=== PATIENT | female | born 1970 | race Caucasian/White ===

== ENCOUNTER 2016-08-22 21:45 | Emergency (ER) | payer BC, OTHER ==
[2016-08-22 22:30] LABS: ABSOLUTE NEUTROPHIL COUNT 4.1 K/mm3 (1.8-7.7); BASO # 0.1 K/mm3 (0.0-0.2); BASO % 0.7 % (0.2-1.0); EOS # 0.2 (0.0-0.5); EOS % 1.7 % (0.9-2.9); HEMATOCRIT 41.6 % (37.0-47.0); HEMOGLOBIN 13.5 gm/l (12.0-16.0); IMM NEUT% 0.2 % (0-1); LYMPH # 3.6 (1.0-4.8); LYMPH % 42.1 % (15-45); MEAN CELL VOLUME 87.2 fl (81.0-99.0); MEAN CORPUSCULAR HEMOGLOBIN 28.3 pg (27.0-31.0); MEAN CORPUSCULAR HGB CONC 32.5 g/dl (33.0-37.0); MEAN PLATELET VOLUME 9.5 fl (7.4-10.4); MONO # 0.7 (0.0-0.8); MONO % 8.2 % (4-12); NEUT % 47.1 % (43-75); PLATELET COUNT 289 K/mm3 (130-400); RED CELL DISTRIBUTION WIDTH 13.2 % (11.5-14.5)
[2016-08-22 22:55] LABS: ALB/GLOB RATIO 1.7 (>1.0); ALBUMIN 4.2 gm/dL (3.5-5.7); CALCIUM 9.6 mg/dL (8.6-10.3)
[2016-08-22 22:57] LABS: TROPONIN I < 0.01 ng/ml (0.0-0.06)
[2016-08-22 23:01] LABS: CKMB ISOENZYME 1.5 ng/ml (0.6-6.3)
[2016-08-22 23:54] LABS: SPECIFIC GRAVITY 1.015 (1.001-1.030); URINE BILIRUBIN NEGATIVE (NEGATIVE); URINE BLOOD NEGATIVE (NEGATIVE); URINE GLUCOSE (UA) NEGATIVE (NEGATIVE); URINE LEUKOCYTE ESTERASE NEGATIVE (NEGATIVE); URINE NITRITE NEGATIVE (NEGATIVE); URINE PROTEIN NEGATIVE (NEGATIVE); URINE UROBILINOGEN NORMAL (0-1 mg/dl)
[2016-08-22 23:58] LABS: URINE APPEARANCE CLEAR; URINE COLOR LIGHT YELLOW
[2016-08-23 00:06] LABS: LIPASE 40 U/L (11-82)
--- NOTE | 2016-08-23 08:18 | RAD ---
08/23/2016 8:08 AM CHEST - 2 VIEWS History: Fluttering feeling in chest. Comparison: None Findings: Two views of the chest are obtained. The lungs are clear with out effusion or pneumothorax. The cardiomediastinal silhouette is unremarkable.. The osseous structures are intact.. IMPRESSION: No acute intrathoracic process.
== END 2016-08-23 00:31 | disposition home or self-care (01) ==
LOC: ED 21:45
DX: R00.2 Palpitations (principal); R06.02 Shortness of breath; R53.81 Other malaise